=== PATIENT | female | born 1960 | race African-American/Black ===

== ENCOUNTER → 2016-07-23 | Outpatient (CLI) | payer OTHER ==
[~2016-07-23] MED LIST: ALBU6.7H INH; ASPI81CH CHEW; ASPI81TA81 PO; BLAC540C PO; DIPH50IN2 IM; GABA100C4 PO; IBUP200C PO; IBUP800T23 PO; LISI20TA PO; METH125I2 IM; NAPR500T PO; PRED20 PO; SOY40TAB; ST J81CH PO; TRIA.1%T TOPICAL; VIST50CA PO; [UNRECOGNIZED DRUG - CODE]
[2016-07-23 09:15] LABS: AUTOMATED NEUTROPHIL # 1.2 TH/MM3 (1.8-7.7); BASOPHIL % 0.4 % (0.0-2.0); EOSINOPHIL # 0.5 TH/MM3 (0-0.4); EOSINOPHIL % 7.9 % (0.0-4.0); HEMATOCRIT 41.5 % (35.0-46.0); LYMPH % 63.2 % (9.0-44.0); LYMPHOCYTE # 3.7 TH/MM3 (1.0-4.8); MEAN CELL VOLUME 87.1 FL (80.0-100.0); MEAN CORPUSCULAR HEMOGLOBIN 29.6 PG (27.0-34.0); MONO % 8.2 % (0.0-8.0); NEUT % 20.3 % (16.0-70.0); PLATELET COUNT 189 TH/MM3 (150-450); RED BLOOD COUNT 4.77 MIL/MM3 (4.00-5.30); RED CELL DISTRIBUTION WIDTH 14.4 % (11.6-17.2); WHITE BLOOD COUNT 5.9 TH/MM3 (4.0-11.0)
[2016-07-23 09:19] LABS: HEMO FLAGS AUTO DIFF
[2016-07-23 09:58] LABS: ALKALINE PHOSPHATASE 80 U/L (45-117); ALT (GPT) 24 U/L (10-53); ANION GAP 5 MEQ/L (5-15); AST (GOT) 20 U/L (15-37); BICARBONATE 31.6 MEQ/L (21.0-32.0); BLOOD UREA NITROGEN 12 MG/DL (7-18); CHLORIDE 104 MEQ/L (98-107); GLOMERULAR FILTRATION RATE 74 ML/MIN (>89); GLUCOSE,FASTING 82 MG/DL (74-99); HDL CHOLESTEROL 78.7 MG/DL (40.0-60.0); LDL CHOLESTEROL 129 MG/DL (0-99); SODIUM (NA) 141 MEQ/L (136-145); TOTAL BILIRUBIN ADULT 0.6 MG/DL (0.2-1.0)
[2016-07-23 10:06] LABS: POTASSIUM 3.7 MEQ/L (3.5-5.1)
[2016-07-23 10:34] LABS: SCAN/DIFF AUTO DIFF CONFIRMED
== END ==
LOC: CLAB 08:52
PROVIDERS: ATTEND Family Medicine
DX: E78.5 Hyperlipidemia, unspecified (principal); I10 Essential (primary) hypertension; M19.90 Unspecified osteoarthritis, unspecified site; G89.29 Other chronic pain
CPT/HCPCS: 36415; 80053; 80061; 84443; 85025

== ENCOUNTER 2016-11-23 14:12 | Emergency (ER) | payer OTHER ==
[~2016-11-23] VITALS: Ht 172.7 cm; Wt 74.5 kg
[~2016-11-23 14:12] MED LIST changes: -ASPI81CH CHEW; -DIPH50IN2 IM; -METH125I2 IM; -PRED20 PO; -SOY40TAB; -ST J81CH PO
[2016-11-23 14:17] VITALS: BP 119/78; PULSE 75; RESP 16; TEMP 97.8; O2SAT 99
--- NOTE | 2016-11-23 14:45 | PD ---
HPI Chief Complaint: Skin Problem Time Seen by Provider: 14:25 Travel History International Travel<30 days: No Contact w/Intl Traveler<30days: No Traveled to known affect area: No History of Present Illness HPI 55-year-old female presents to the emergency room for evaluation of itchy rash to bilateral upper extremities. Patient first noticed the rash a few months ago. She has kind her primary care physician 3 times for it. She has been prescribed Vistaril, triamcinolone, Solu-Medrol, and prednisone. Patient states none of these medications seem to be helping. She has not been able to follow-up with a shipping assistant. She denies any new lotions or detergents. She reports a possible allergy to several foods but has stopped of the foods in the rash continues. Patient takes lisinopril but has been on it for a long time. She denies shortness of breath and sore throat. History Social History Alcohol Use: Yes (OCCASIONAL) Tobacco Use: No (former) Allergies-Medications (Allergen,Severity, Reaction): Coded Allergies: Baclofen (Verified Allergy, Severe, Swelling, 11/23/16) Face swelling Reported Meds & Prescriptions Reported Meds & Active Scripts Active Vistaril (Hydroxyzine Pamoate) 50 Mg Cap 50 Mg PO Q6HR PRN Triamcinolone Topical (Triamcinolone Acetonide) 0.1% Cream 1 Applic TOPICAL BID Gabapentin 100 Mg Cap 100 Mg PO TID Lisinopril-Hctz 20-12.5 Mg Tab 1 Tab PO DAILY Reported Aspir-81 (Aspirin) 81 Mg Tabdr 81 Mg PO DAILY Proventil Hfa 6.7 GM Inh (Albuterol Sulfate) 90 Mcg/Act Aer 1 Puff INH Q4H PRN Ibuprofen 800 Mg Tab 800 Mg PO DAILY PRN Ibuprofen 200 Mg Cap 200 Mg PO DAILY PRN Black Cohosh (Black Cohosh Extract) 40 Mg Cap 40 Mg PO DAILY Review of Systems Except as stated in HPI: all other systems reviewed are Neg Physical Exam Narrative GENERAL: Well-nourished, well-developed female in no acute distress. Afebrile. Ambulatory. SKIN: Focused skin assessment warm/dry. Skin colored maculopapular, raised lesions to bilateral upper extremities. No significant excoriations. No evidence of fungal infection. No evidence of scabies. HEAD: Normocephalic. EYES: No scleral icterus. No injection or drainage. NECK: Supple, trachea midline. No JVD or lymphadenopathy. CARDIOVASCULAR: Regular rate and rhythm without murmurs, gallops, or rubs. RESPIRATORY: Breath sounds equal bilaterally. No accessory muscle use. Data Data Last Documented VS Vital Signs Date Time Temp Pulse Resp B/P Pulse Ox O2 Delivery O2 Flow Rate FiO2 11/23/16 14:17 97.8 75 16 119/78 99 MDM Medical Screen Exam Complete: Yes Emergency Medical Condition: No Differential Diagnosis Itchy rash Narrative Course 55-year-old female presents to the emergency room for evaluation of itchy rash to bilateral upper extremities the past several months. Denies any allergic triggers. Patient has seen her primary care physician, office of Dr. Muhammad, multiple times and been given multiple prescriptions but states it on her helping. She has had several doses of steroids: topical, IM, and oral. There is no evidence of scabies or fungal infection. Patient was told to follow-up with her primary care physician about the rash for possible referral to shipping assistant. There are no urgent or emergent medical conditions at this time. A medical screening exam was performed: At the time of evaluation the presenting medical condition was determined not to be of an emergent nature. The patient was given the option of receiving additional care, but declined. Patient was given options for additional community resources from which to obtain care. The Patient Has Been advised to seek medical attention for their presenting complaint. The patient has been advised to return to the ER at any time if an emergent condition develops. Primary Impression: Encounter for medical screening examination Patient Instructions: General Instructions Departure Forms: Tests/Procedures Disposition: 01 DISCHARGE HOME Condition: Stable Joana Blakely Nov 23, 2016 14:45
[2016-12-11] MEDS ORDERED: SOY40TAB (16:22)
[2016-12-11] MEDS ORDERED: METH125I2 IM (16:34)
[2016-12-11] MEDS ORDERED: DIPH50IN2 IM (16:34)
[2016-12-11] MEDS ORDERED: VIST50CA PO (16:35)
[2016-12-18] MEDS ORDERED: LISI20TA PO ×2 (10:45→14:26)
== END 2016-11-23 14:49 | disposition left against medical advice (07) ==
LOC: PHEFT 14:12
DX: R21 Rash and other nonspecific skin eruption (principal)
CPT/HCPCS: 99281